=== PATIENT | male | born 1970 | race Caucasian/White ===

== ENCOUNTER 2019-11-28 07:51 | Outpatient (CLI) | payer OTHER, SELFPAY ==
--- NOTE | 2019-11-28 07:58 | ECHO_ITS ---
Patient Info Name: Scout Finney Age: 49 years : 1970 Gender: Male Ht: 76 in Wt: 190 lbs BSA: 2.15 m2 HR: 65 bpm BP: 121 / 73 mmHg Heart Rhythm: Sinus Rhythm Technical Quality: Excellent Exam Date: 11/28/2019 8:09 AM Exam Location: [facility] Patient Status: Outpatient Admit Date: 11/28/2019 Staff Ordering Physician: Cathy Parker MD Soil Field Technician: ILEANA Attending Provider: Cathy Parker MD Referring Physician: Keith CHRISTIANSON; Exam Type: CA echo doppler color flow Study Info Indications R94.31 - Abnormal electrocardiogram ECG EKG Complete two-dimensional, color flow and Doppler transthoracic echocardiogram is performed. Strain analysis performed. History/Risk Factors Hypertension: No Dyslipidemia: No Congenital Heart Disease (CHD): No Peripheral Arterial Disease (PAD): No Myocardial Infarction (WA): No Chronic Lung Disease: No Obesity: No Renal Disease: No Coronary Artery Disease (CAD) No Congestive Heart Failure (CHF): No Cardiomyopathy/LV Systolic Dysfunction: No Diabetes Mellitus: No COPD: No Tobacco Use: Never Cerebrovascular Disease: No Deep Vein Thrombosis (DVT): None Dialysis: None History/Risk Factors Patient has no known cardiac history or risk factors. Cardiac Arrest: No Prior Interventions Pacemaker: No PCI: No CABG: No Valve Surgery: No ICD: No PV Intervention: None Heart Transplant: No Summary 1. Patient has no known cardiac history or risk factors. 2. Left ventricular chamber dimension is normal. 3. Left ventricular systolic function is normal, estimated at 60-65%. 4. The left ventricular diastolic function is normal. 5. E/e' 8 is minimally elevated. 6. Global longitudinal strain is normal at -18.4%. Left Ventricle E/e' 8 is minimally elevated. Global longitudinal strain is normal at -18.4%. Left ventricular chamber dimension is normal. Left ventricular systolic function is normal, estimated at 60-65%. The left ventricular diastolic function is normal. Right Ventricle Right ventricular chamber dimension is normal. Right ventricular systolic function is normal. Left Atria Left atrial chamber dimension is normal. Right Atria Right atrial chamber dimension is normal. Aortic Valve The aortic valve is probable trileaflet. There is no aortic valve stenosis. There is no aortic valve regurgitation. Pulmonic Valve There is no pulmonic regurgitation. Mitral Valve There is no mitral valve stenosis. There is no mitral valve regurgitation. Tricuspid Valve There is no tricuspid valve regurgitation. Pericardium/Pleural There is no pericardial effusion. Inferior Vena Cava Normal inferior vena cava with >50% collapse upon inspiration consistent with normal right atrial pressure, 5 mmHg. Aorta The aortic root size at the sinus of Valsalva is normal. Left Ventricular Outflow Tract Name Value Normal LVOT 2D LVOT Diameter 2.3 cm LVOT Doppler LVOT Peak Velocity 110 cm/s LVOT Peak Grad
== END 2019-11-28 07:52 | disposition home or self-care (01) ==
PROVIDERS: PCP Internal Medicine; Visit Provider Internal Medicine
DX: R94.31 Abnormal electrocardiogram [ECG] [EKG] (principal)
CPT/HCPCS: 93306

== ENCOUNTER 2019-12-21 00:47 | Day surgery (SDC) | payer OTHER, SELFPAY ==
[2019-12-06 14:36] VITALS: BMI 23.8
--- NOTE | 2019-12-21 06:36 | WPDHPUPDATE1 ---
History and Physical Update Update Date/Time: 12/21/19 06:36 History and Physical has been reviewed, including an updated exam of the patient. There are NO changes in the patient's condition. Risks, benefits, and alternatives have been discussed and questions answered. Patient agrees to proceed with procedure.
[2019-12-21 07:17] VITALS: BP 132/91; PULSE 68; RESP 20; TEMP 36.2; O2SAT 100
[2019-12-21] MEDS: LACTATED RINGERS 1,000 ML 30 ML IV CONT ×2 (08:05→11:39)
--- NOTE | 2019-12-21 08:51 | WPDANESEPPF ---
Anes - Initial Pre Proc Eval Procedure: Operation Date: 12/21/19 09:00 Proposed Procedures p Left Inguinal Hernia Repair - Remigio Taylor MD Date/Time: 12/21/19 08:51 Surgeon: Remigio Taylor MD Pre Op Diagnosis: Left Inguinal Hernia Patient Data Age: 49 Gender: M Height: 1.93 m Weight: 88.9 kg Last Vital Signs Temp 36.2 C L 12/21/19 07:17 Pulse 68 12/21/19 07:17 Resp 20 12/21/19 07:17 BP 132/91 H 12/21/19 07:17 Pulse Ox 100 12/21/19 07:17 Allergies Allergy/AdvReac Type Severity Reaction Status Date / Time No Known Allergies Allergy Verified 12/21/19 08:21 Home Medications Medication Instructions Recorded Confirmed Type loratadine 10 mg tablet 10 mg PO DAILY 11/27/19 12/21/19 History Patient hx anesthesia problems: none Family hx anesthesia problems: none [facility] Social History Social History Smoking status: Never smoker Alcohol intake: current Anes - Eval Final PreProcedure Day of Procedure 12/21/19 08:51 Patient weight: normal Heart: regular rate and rhythm Lungs: clear to auscultation and normal air movement Airway: Mallampati scale class II Neurological: alert and oriented Last oral intake: >/= 8 hours ASA classification: II Emergent: no Anesthetic plan: proceed Anesthesia type and monitoring: general GIVS and standard monitoring Informed Consent: The patient's anesthetic plan and its attendant risks and benefits were discussed with the patient/family/POA. Questions were solicited and answers provided to the satisfaction of the patient/family/POA.
[2019-12-21] MEDS: ceFAZolin 2 GM/D5W 50 ML 2 GM/50 ML BAG IVPB (09:13)
[2019-12-21 10:39] VITALS: BP 127/87; PULSE 68; RESP 16; TEMP 36.6; O2SAT 100
--- NOTE | 2019-12-21 10:45 | P.OP_ITS ---
Procedure Note - Detailed Date of procedure: 12/21/19 Pre-op diagnosis: Left Inguinal Hernia Left inguinal hernia Post-op diagnosis: other (Indirect hernia) Procedure performed: Repair of left inguinal hernia with 6 cm Parietex hernia mesh system Description of procedure: The patient was taken to surgery and IV sedation was administered. The left groin and genitalia were prepped and draped. Proposed incision was marked on the skin. Local was infiltrated into the skin and the deeper subcutaneous tissues. Incision was made and deepened through the subcutaneous. Crossing veins were cauterized and divided. Dissection was carried through Patsy's fascia down to the external oblique aponeurosis. The aponeurosis was exposed as was the external ring. Additional local anesthesia was infiltrated deep to the aponeurosis in the area of the spermatic cord and inguinal canal contents. The aponeurosis was opened laterally and extended medially through the external ring. The leaves of the aponeurosis were dissect ed free from the spermatic cord. The ileoinguinal nerve was carefully preserved throughout the dissection and was left attached to the spermatic cord. The cord was then mobilized medially on a [place] drain. The cord was dissected back to the internal ring. Dissection was then carried out in the anteromedial spermatic cord. The hernia sac was found and dissected free. The sac was opened so that I could place a finger within the hernia sac and facilitate this dissection. This opening was then closed with a running 3 0 Vicryl suture. The sac was then dissected back to a high dissection. It was dunked into the retroperitoneum. A 6 centimeter Parietex [place] was chosen. It was folded to form a plug. It was placed in the defect. The edges were sutured to the transversalis fascia with interrupted 3 0 Vicryl suture. The hernia defect was then partially closed with some additional 3 0 Vicryl suture. Patch was then cut to the appropriate size and placed over the inguinal canal floor. The lateral leaves were passed beyond the cord. The cord and ileoinguinal nerve were then laid over the patch. The external oblique aponeurosis was closed with interrupted 3 0 Vicryl suture. Patsy's fascia was closed with interrupted 3 0 Vicryl suture. The subcutaneous was closed with interrupted 4 0 Vicryl suture. Four 0 Vicryl subcuticular skin sutures were placed. The skin was closed finally with a running 4 0 Monocryl skin suture. The wound was dressed with Exofin surgical adhesive. The patient was awakened and taken to recovery in good condition. Sponge and needle counts were correct x2. Anesthesia: MAC and local (0.5% Marcaine with Exparel) Surgeon: Remigio Taylor MD District Manager Primary Care Sales: Kanwal CHILDERS Estimated blood loss (mL): 5 Drains: No Packing: No Pathology: none sent Complications: None Condition: stable Disposition: same day Findings: Indirect inguinal hernia. No sliding hernia was noted.
[2019-12-21 11:00] VITALS: BP 131/81; PULSE 60
[2019-12-21 11:30] VITALS: BP 151/79; PULSE 54
== END 2019-12-21 11:50 | disposition home or self-care (01) ==
PROVIDERS: PCP Internal Medicine; Visit Provider Surgery
PROC: (CPT 49505; principal; 2019-12-21 09:00)
DX: K40.90 Unilateral inguinal hernia, without obstruction or gangrene, not specified as recurrent (principal)
CPT/HCPCS: 49505; A9270; C1781; C9290; J0690; J1100; J1885; J2250; J2590; J2704; J3010; J7120

== ENCOUNTER 2021-10-19 17:34 | Outpatient (CLI) | payer OTHER, SELFPAY ==
[2021-10-19 19:24] LABS: Influenza A QL RT-PCR Negative (Negative); Influenza B QL RT-PCR Negative (Negative); SARS-CoV-2 RNA PCR Positive (Negative)
== END 2021-10-19 17:35 | disposition home or self-care (01) ==
LOC: CHSLAB 17:39
PROVIDERS: PCP Internal Medicine; Visit Provider Family Medicine
DX: Z20.822 Contact with and (suspected) exposure to COVID-19 (principal); J00 Acute nasopharyngitis [common cold]
CPT/HCPCS: 87502; C9803; U0003; U0005

== ENCOUNTER 2024-01-13 07:57 | Outpatient (CLI) | payer OTHER, SELFPAY ==
--- NOTE | ~2024-01-13 | MR_ITS ---
EXAMINATION: MR brain IAC wo/w con DATE: 01/13/2024 12:57 INDICATION: Dizziness. Right-sided hearing loss. Tinnitus. TECHNIQUE: Magnetic resonance imaging (MRI) of the brain, brainstem, and internal auditory canals was performed without and with 18 mL MultiHance intravenous contrast. COMPARISON: None. FINDINGS: There is no intracranial hemorrhage, acute infarction, or abnormal intracranial mass lesion . The ventricles are normal in size. The paranasal sinuses are clear. The orbits are normal. The inte rnal auditory canals, inner ears, tympanic cavities, and mastoid air cells are normal. IMPRESSION: 1. Normal brain. Reviewed, dictated and finalized at location A. IMPRESSION: 1. Normal brain.
--- NOTE | ~2024-01-13 | XR_ITS ---
EXAMINATION: XR orbit foreign body INDICATION: Possible orbital foreign body TECHNIQUE: AP view of the orbits is obtained. COMPARISON: None available FINDINGS: No radiopaque foreign body of the orbits is identified. The paranasal sinuses appear well-a erated. The osseous structures are unremarkable. IMPRESSION: 1. No radiopaque foreign body identified. Reviewed, dictated and finalized at location A.
== END 2024-01-13 07:58 | disposition home or self-care (01) ==
DX: R42 Dizziness and giddiness (principal); H91.90 Unspecified hearing loss, unspecified ear
CPT/HCPCS: 70030; 70553; A9577

== ENCOUNTER 2024-12-07 15:47 | Outpatient (CLI) | payer OTHER, SELFPAY ==
--- NOTE | ~2024-12-07 | MR_ITS ---
EXAMINATION: MR IAC wo/w con DATE: 12/07/2024 16:43 INDICATION: Asymmetrical hearing loss. Loss of balance.. TECHNIQUE: Magnetic resonance imaging (MRI) of the brain, brainstem, and internal auditory canals was performed without intravenous contrast. COMPARISON: Brain MRI 01/13/2024 FINDINGS: There is no intracranial hemorrhage, acute infarction, or abnormal intracranial mass lesion . The ventricles are normal in size. The paranasal sinuses are clear. The orbits are normal. The mast oid air cells are normal. The internal auditory canals, inner ears, and tympanic cavities are normal. IMPRESSION: 1. Normal brain. Reviewed, dictated and finalized at location A. EL PROFESSIONAL IMPRESSION: 1. Normal brain.
--- OUTSIDE RECORDS SUMMARY | 2024-12-07 15:52 | XMS_ITS | Clinical Summary ---
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 Gender Identity Not on file Sexual Orientation Not on file Plan of Treatment Health Maintenance Due Date Last Done Comments Colorectal Cancer Screening Colonoscopy (10 Years) 1970 Annual Physical 1971 Hepatitis C 1986 DTaP, Tdap and Td Vaccines ( 1 - Tdap) 1987 Hepatitis B Vaccines (1 of 3 - 19+ 3-dose series) 1987 Zoster Vaccines (1 of 2) 2018 COVID-19 Vaccine (2023-2 5 season) 2024 Influenza Adult (#1) 2024 Meningococcal B Vaccine Aged Out No l onger eligible based on patient's age to complete this topic Meningococcal Vaccine Aged Out No rodney geena eligible based on patient's age to complete this topic Pneumococcal Vaccine: Pediat rics (0 to 5 Years) and At-Risk Patients (6 to 64 Years) Aged Out No longer eligible b ased on patient's age to complete this topic RSV Immunizations Under 20 Months Aged Out No longer eligible based on patient's age to complete this topic
== END 2024-12-07 15:48 | disposition home or self-care (01) ==
PROVIDERS: PCP Internal Medicine; Visit Provider Otolaryngology Otolaryngology/Facial Plastic Surgery
DX: H90.3 Sensorineural hearing loss, bilateral (principal); H93.11 Tinnitus, right ear; R26.89 Other abnormalities of gait and mobility
CPT/HCPCS: 70553; A9577

== ENCOUNTER 2024-12-24 09:01 | Outpatient (CLI) | payer OTHER, SELFPAY ==
--- OUTSIDE RECORDS SUMMARY | 2024-12-24 09:56 | XMS_ITS | Clinical Summary ---
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
== END 2024-12-24 09:02 | disposition home or self-care (01) ==
LOC: ANHAUDIO 09:02
PROVIDERS: PCP Internal Medicine; Visit Provider Otolaryngology Otolaryngology/Facial Plastic Surgery
DX: H90.42 Sensorineural hearing loss, unilateral, left ear, with unrestricted hearing on the contralateral side (principal); H90.71 Mixed conductive and sensorineural hearing loss, unilateral, right ear, with unrestricted hearing on the contralateral side; H93.13 Tinnitus, bilateral; R42 Dizziness and giddiness; Z96.22 Myringotomy tube(s) status; Z98.890 Other specified postprocedural states; Q17.3 Other misshapen ear
CPT/HCPCS: 92557; 92567

== ENCOUNTER 2025-04-12 08:56 | Outpatient (CLI) | payer OTHER, SELFPAY | END 2025-04-12 08:57 | disposition home or self-care (01) | LOC: ANHAUDIO 08:56 | PROVIDERS: PCP Otolaryngology Otolaryngology/Facial Plastic Surgery; Visit Provider Otolaryngology Otolaryngology/Facial Plastic Surgery | DX: H90.3 Sensorineural hearing loss, bilateral (principal) | CPT/HCPCS: 92557; 92567 ==

== ENCOUNTER 2025-09-25 13:57 | Outpatient (CLI) | payer OTHER, SELFPAY ==
--- NOTE | ~2025-09-25 | XR_ITS ---
EXAMINATION: XR chest 2V, 09/25/2025 14:11 CUSHION MAKER HISTORY: Cough/RLL crepts COMPARISON: No comparisons available. Technique: 2 views obtained. Findings: The lungs are clear, no effusion. No pneumothorax. Heart is normal size. Mediastinal and hilar contours are within normal limits. Bony thorax no acute abnormality. Impression: No acute cardiopulmonary abnormality. Reviewed, dictated and finalized at location P. ION MAKER Impression: No acute cardiopulmonary abnormality.
[2025-09-25 14:13] LABS: Hematocrit 42.8 % (40.0-54.0); Hemoglobin 14.6 g/dL (14.0-18.0); Mean Corpuscular HGB Conc 34.1 g/dL (32-36); Mean Corpuscular Hemoglobin 29.9 pg (27.0-31.0); Mean Corpuscular Volume 87.5 fL (78.0-102.0); Platelet Count Result 205 K/mm3 (150-420); Red Blood Count 4.89 M/mm3 (4.70-6.10); White Blood Count 8.8 K/mm3 (4.8-10.8)
[2025-09-25 14:25] LABS: Alanine Aminotransferase 35 U/L (6-50); Albumin Level 4.4 g/dL (3.5-5.1); Alkaline Phosphatase 127 U/L (38-126); Anion Gap 4 mmol/L (4-12); Aspartate Amino Transferase 31 U/L (17-59); Bilirubin,Total 0.4 mg/dL (0.2-1.3); Blood Urea Nitrogen 16 mg/dL (9-20); Calcium 8.9 mg/dL (8.4-10.2); Carbon Dioxide 32 mmol/L (22-30); Chloride 104 mmol/L (98-107); Estimated Glomerular Filt Rate > 60; Glucose 110 mg/dL (65-110); Osmolality Calculated 292 mOsm/kg (285-295); Potassium 3.8 mmol/L (3.4-5.0); Sodium 140 mmol/L (137-145); Total Protein 7.0 g/dL (6.3-8.2)
[2025-09-25 14:37] LABS: Strep Group A RT-PCR NOT DETECTED (Negative)
[2025-09-25 14:49] LABS: Influenza A QL RT-PCR Negative (Negative); Influenza B QL RT-PCR Negative (Negative); RSV RNA, RT-PCR Negative (Negative); SARS-CoV-2 RNA PCR Negative (Negative)
== END 2025-09-25 13:58 | disposition home or self-care (01) ==
PROVIDERS: PCP Internal Medicine; Visit Provider Internal Medicine
DX: R05.9 Cough, unspecified (principal); R06.89 Other abnormalities of breathing
CPT/HCPCS: 36415; 71046; 80053; 85027; 87637; 87651